=== PATIENT | female | born 1980 | race Caucasian/White ===

== ENCOUNTER 2017-01-08 12:52 | Emergency (ER) | payer BC ==
[2017-01-08 12:58] VITALS: BMI 25.3
--- NOTE | 2017-01-08 13:10 | EDPD ---
Arrival/HPI - General Time Seen by Provider: 01/08/17 12:55 Historian: Patient - History of Present Illness Narrative History of Present Illness (Text): 01/08/17 12:59 36 y/o female, pmh includin otitis and paronychia, nkda, c/o Past Medical History - Immunization Tetanus Immunization: Unknown - Infectious Disease Hx of Infectious Diseases: None - Surgical History Past Surgical History: No Previous - Reproductive LMP Date: 10/02/14 Currently : No Currently Lactating: No - Suicidal Assessment Feels Threatened at Home: No Family/Social History Smoking Status: Never Smoked Hx Alcohol Use: No Hx Substance Use: No Hx Substance Use Treatment: No Allergies/Home Meds Allergies/Adverse Reactions: Allergies No Known Allergies Allergy (Verified 01/08/17 12:58) Home Medications: Home Meds Medication Instructions Recorded Confirmed No Known Home Med 01/08/17 01/08/17 Disposition/Present on Arrival - Present on Arrival History of DVT/PE: No History of Uncontrolled Diabetes: No Urinary Catheter: No History Surgical Site Infection Following: None - Disposition
--- NOTE | 2017-01-08 13:45 | ED PDOC ---
Arrival/HPI - General Historian: Patient <Edward Davis - Last Filed: 01/08/17 13:41> - History of Present Illness Symptom Onset: Sudden Symptom Course: Unchanged Activities at Onset: Rest Context: Home <Maria Elena Huff - Last Filed: 01/08/17 14:03> - General Chief Complaint: Abnormal Skin Integrity Time Seen by Provider: 01/08/17 12:55 - History of Present Illness Narrative History of Present Illness (Text): 01/08/17 13:41 This is a 36 yo F with no PMH that presents with a complaint of a rash with open sores on her buttocks near the anal verge. She reports associated pruritis. Pt admits to scratching and causing the open sores. Denies fevers, chills, chest pain, sob, nausea, vomiting. (Edward Davis) Past Medical History - Provider Review Nursing Documentation Reviewed: Yes - Travel History If Yes, travel location?: [place] - Past History Past History: No Previous - Infectious Disease Hx of Infectious Diseases: None - Tetanus Immunization Tetanus Immunization: Unknown - Past Medical History Past Medical History: No Previous - Psychiatric Hx Substance Use: No - Past Surgical History Past Surgical History: No Previous - Surgical History Other/Comment: 2 vaginal births - Anesthesia Hx Anesthesia: No - Suicidal Assessment Feels Threatened In Home Enviroment: No <Edward Davis - Last Filed: 01/08/17 13:41> Family/Social History - Physician Review Nursing Documentation Reviewed: Yes Family/Social History: No Known Family HX Smoking Status: Never Smoked Hx Alcohol Use: Yes Frequency of alcohol use: Socially Hx Substance Use: No Hx Substance Use Treatment: No <Edward Davis - Last Filed: 01/08/17 13:41> Allergies/Home Meds <RyanEdward - Last Filed: 01/08/17 13:41> <Maria Elena Huff - Last Filed: 01/08/17 14:03> Allergies/Adverse Reactions: Allergies No Known Allergies Allergy (Verified 01/08/17 12:58) Home Medications: Home Meds Medication Instructions Recorded Confirmed No Known Home Med 01/08/17 01/08/17 Review of Systems - Review of Systems Constitutional: Normal. absent: Fevers Eyes: Normal ENT: Normal Respiratory: Normal. absent: SOB, Cough Cardiovascular: Normal. absent: Chest Pain, Palpitations Gastrointestinal: Normal. absent: Abdominal Pain, Nausea, Vomiting Genitourinary Female: Normal. absent: Dysuria, Frequency, Vaginal Discharge Musculoskeletal: Normal Skin: Pruritis, Skin Lesions Neurological: Normal Endocrine: Normal Hemo/Lymphatic: Normal Psychiatric: Normal <Edward Davis - Last Filed: 01/08/17 13:41> - Physician Review All systems were reviewed & negative as marked: Yes <Maria Elena Huff - Last Filed: 01/08/17 14:03> Physical Exam Temperature: Afebrile Blood Pressure: Normal Pulse: Regular Respiratory Rate: Normal Appearance: Positive for: Well-Appearing, Non-Toxic, Comfortable Pain Distress: None Mental Status: Positive for: Alert and Oriented X 3 - Systems Exam Head: Present: Atraumatic, Normocephalic Respiratory/Chest: Present: Clear to Auscultation, Good Air Exchange Cardiovascular: Present: Regular Rate and Rhythm, Normal S1, S2 Abdomen: Present: Normal Bowel Sounds. No: Tenderness, Distention Upper Extremity: Present: NORMAL PULSES Lower Extremity: Present: NORMAL PULSES Neurological: Present: Speech Normal, Motor Func Grossly Intact Skin: Present: Warm, Dry, Other (3 small pustules, likely pimples near the anal verg on the left side. No erythema or drainage) Psychiatric: Present: Alert, Oriented x 3, Anxious <RyanEdward - Last Filed: 01/08/17 13:41> Vital Signs Reviewed: Yes - Systems Exam Skin: Present: Other (3 small pustules, likely pimples near the anal verg on the left side. No erythema or drainage (scribe Belqes present)) <Maria Elena Huff - Last Filed: 01/08/17 14:03> Vital Signs Temp Pulse Resp BP Pulse Ox 01/08/17 13:02 98.0 F 79 18 168/101 H 99 Medical Decision Making <Edward Davis - Last Filed: 01/08/17 13:41> <Maria Elena Huff - Last Filed: 01/08/17 14:03> ED Course and Treatment: 01/08/17 13:58 36 yo F with complaint of rash on buttocks Plan: exam revealed likely pimples in affected area. Recommended that the pt keep clean, dry and apply antibiotic ointment over affected area. Pt reassured and discharged home with instructions to follow up and to return if symptoms worsen. (Edward Davis) Patient Seen With Resident: In agreement with resident note which contains more details about the patient. Patient was seen and evaluated with resident. Came up with plan and treatment together. (Maria Elena Huff) Disposition/Present on Arrival - Present on Arrival Any Indicators Present on Arrival: No History of DVT/PE: No History of Uncontrolled Diabetes: No Urinary Catheter: No History of Decub. Ulcer: No History Surgical Site Infection Following: None - Disposition Have Diagnosis and Disposition been Completed?: Yes Disposition Time: 13:45 <Edward Davis - Last Filed: 01/08/17 13:41> <Maria Elena Huff - Last Filed: 01/08/17 14:03> - Disposition Diagnosis: Rash and nonspecific skin eruption Disposition: HOME/ ROUTINE Patient Problems: Current Active Problems Problem Status Onset Rash and nonspecific skin eruption Acute Condition: GOOD Discharge Instructions (ExitCare): Dermatitis (ED) Additional Instructions: You were evaluated for a rash. Apply over the counter antibiotic ointment (ex Neosporin) to affected area until resolution. Keep clean and dry. Follow up with primary care provider within the next 2 weeks. Return to ER if symptoms worsen.
[2017-01-08 14:10] VITALS: BP 120/53; PULSE 69; RESP 20; TEMP 97.5; O2SAT 100
== END 2017-01-08 14:10 | disposition home or self-care (01) ==
LOC: ED 12:52
DX: R21 Rash and other nonspecific skin eruption (principal)